=== PATIENT | male | born 1970 | race African-American/Black ===

== ENCOUNTER 2019-09-15 17:33 | Emergency (ER) | payer OTHER ==
[~2019-09-15] VITALS: Ht 182.9 cm; Wt 77.1 kg
[~2019-09-15 17:33] MED LIST: ACETASOL HC OTI10 M1 OT; AMOXICILLIN 50500 MG PO; FLEXERIL PO; GABAPENTIN 100100 MG PO; HYDROCHLOROTHIA25 M1 PO; HYDROCODONE-AP1 EAC6 PO; LIDOCAINE VISC100 M1 SWISH&SPIT; MOBIC15 MG PO; NORCO 5-325 TA1 EACH PO; PENICILLIN V P500 MG PO; TOPROL XL25 MG; TRAMADOL 50 MG50 MG PO; ZOFRAN ODT4 MG PO
[2019-09-15] MEDS ORDERED: NABUMETONE 750750 M1 PO (18:45)
[2019-09-15] MEDS ORDERED: ZANAFLEX4 MG PO (18:45)
[2019-09-15 19:03] VITALS: BP 106/68
== END 2019-09-15 19:03 | disposition home or self-care (01) ==
LOC: M.ERS 17:33
DX: S06.0X1A Concussion with loss of consciousness of 30 minutes or less, initial encounter (principal); S16.1XXA Strain of muscle, fascia and tendon at neck level, initial encounter; S29.012A Strain of muscle and tendon of back wall of thorax, initial encounter; S20.212A Contusion of left front wall of thorax, initial encounter; S50.02XA Contusion of left elbow, initial encounter; S50.01XA Contusion of right elbow, initial encounter; S80.212A Abrasion, left knee, initial encounter; J43.9 Emphysema, unspecified; I10 Essential (primary) hypertension; W16.112A Fall into natural body of water striking water surface causing other injury, initial encounter; Y93.89 Activity, other specified; Y92.89 Other specified places as the place of occurrence of the external cause; Y99.8 Other external cause status

== ENCOUNTER 2021-06-11 12:09 | Emergency (ER) | payer BC ==
[~2021-06-11] VITALS: Ht 188 cm; Wt 72.6 kg
[~2021-06-11 12:09] MED LIST changes: +NABUMETONE 750750 M1 PO; +ZANAFLEX4 MG PO
[2021-06-11 13:47] LABS: ABSOLUTE BASOPHILS 0.1 thou/uL (0.0-0.2); ABSOLUTE EOSINOPHILS 0.2 thou/uL (0.0-0.7); ABSOLUTE LYMPHOCYTES 2.3 thou/uL (0.8-5.3); ABSOLUTE MONOCYTES 0.5 thou/uL (0.0-1.2); ABSOLUTE NEUTROPHILS 7.5 thou/uL (1.6-8.1); BASOPHILS 1.3 %; EOSINOPHILS 1.6 %; HEMATOCRIT 39.2 % (42.0-52.0); HEMOGLOBIN 12.8 gm/dL (14.0-18.0); LYMPHOCYTES 21.4 %; MCH 29.9 pg (26.0-34.0); MCHC 32.7 g/dL (28.0-37.0); MCV 91.5 fL (80.0-100.0); MONOCYTES 4.9 %; MPV 6.7 fl. (7.2-11.1); NUCLEATED RBCS 0 /100WBC; PLATELET COUNT* 354 thou/uL (150-400); POLYS 70.8 %; RBC 4.29 mil/uL (4.50-6.00); RDW-CV 14.9 % (10.5-14.5); WBC 10.6 thou/uL (4.0-11.0)
--- NOTE | 2021-06-11 14:22 | EKG ---
[place] [address] ELECTROCARDIOGRAM REPORT Name: RENETTA WOODARD Room: [facility].#: [id number] Admission: Attend Phys: Discharge: Date of : 70 Date of Service: 06/11/21 1221 Report #: [id number] THIS REPORT FOR: //name// [facility] ED Test Date: 2021-06-11 Test Time: 12:21:21 Pat Name: RENETTA WOODARD Department: Room: Gender: Tool Crib Attendant: : 1970 Requested By: Carlos Manuel Spencer Order Number: [id number] MD: Wilbert Flores Measurements Intervals [place] Rate: 81 P: 30 WI: 163 QRS: 36 QRSD: 75 T: 37 QT: 376 QTc: 437 Interpretive Statements Sinus rhythm Probable left atrial enlargement Compared to ECG 09/19/2016 18:15:58 No significant changes Electronically Signed On 06-11-2021 14:22:06 HOT CELL TECHNICIAN by Wilbert Flores [email or web address] <ELECTRONICALLY SIGNED> By: Wilbert Flores MD, [facility] 06/11/21 1422 1221 1221 Wilbert Flores MD, FAC /EPI
[2021-06-11 14:33] LABS: CREATININE 1.4 mg/dL (0.6-1.3); POTASSIUM 4.4 mmol/L (3.5-5.1)
[2021-06-11 14:44] LABS: ALBUMIN 4.2 g/dL (3.4-5.0); MAGNESIUM 2.1 mg/dL (1.8-2.4); TOTAL BILIRUBIN 0.2 mg/dL (<0.1-1.0); TOTAL PROTEIN 7.9 g/dL (6.4-8.2)
[2021-06-11] MEDS ORDERED: ZOFRAN ODT4 MG DISSOLVE (15:33)
[2021-06-11] MEDS ORDERED: TESSALON PERLE100 MG PO (15:33)
[2021-06-11] MEDS ORDERED: FLEXERIL PO (15:33)
[2021-06-11 16:10] VITALS: BP 152/93
== END 2021-06-11 16:12 | disposition home or self-care (01) ==
LOC: M.ERS 12:09
PROVIDERS: Emergency Medicine Emergency Medical Services
DX: R07.89 Other chest pain (principal); I10 Essential (primary) hypertension; Z79.899 Other long term (current) drug therapy